=== PATIENT | male | born 1965 | race Caucasian/White ===

== ENCOUNTER 2020-07-08 02:21 | Outpatient (CLI) | payer BC, SELFPAY ==
[2020-07-08 18:35] LABS: SARS-CoV-2 RNA PCR Negative
== END 2020-07-08 02:22 | disposition home or self-care (01) ==
LOC: ANHCOVIDDT 02:21
PROVIDERS: Visit Provider Internal Medicine Gastroenterology
DX: Z01.812 Encounter for preprocedural laboratory examination (principal); Z20.828 Contact with and (suspected) exposure to other viral communicable diseases
CPT/HCPCS: 87635; C9803; U0003